=== PATIENT | female | born 1980 | race American Indian/Alaskan Native ===

== ENCOUNTER 2017-02-24 00:37 | Emergency (ER) | payer MEDICAID ==
--- NOTE | 2017-02-24 01:26 | C.PDOC ---
History Of Present Illness 37 year old female presents to the ED for evaluation of left ankle pain. Patient reports that she was at [facility] when she was hit by a cart on the back of her left ankle which caused to fall down on her knees. Notes pain starts at her ankle and radiates up the leg. Patient reports that she has pain ambulating. Patient denies head injury, LOC, weakness, numbness, other injury. Time Seen by Provider: 02/24/17 00:53 Chief Complaint (Nursing): Lower Extremity Problem/Injury History Per: Patient - Knee Description Of Injury: Fell - Ankle/Foot Description Of Injury: Struck With Object Currently Unable To: Bear Weight, Bend Or Move Past Medical History Reviewed: Historical Data, Nursing Documentation, Vital Signs Vital Signs: Last Vital Signs Temp 98.1 F 02/24/17 03:55 Pulse 72 02/24/17 03:55 Resp 16 02/24/17 03:55 BP 126/81 02/24/17 03:55 Pulse Ox 98 02/24/17 03:55 - Medical History PMH: No Chronic Diseases Surgical History: No Surg Hx Family History: States: Unknown Family Hx - Social History Hx Alcohol Use: No Hx Substance Use: No - Immunization History Hx Tetanus Toxoid Vaccination: No Hx Influenza Vaccination: No Hx Pneumococcal Vaccination: No Review Of Systems Constitutional: Negative for: Fever, Chills Cardiovascular: Negative for: Chest Pain Respiratory: Negative for: Cough, Shortness of Breath Gastrointestinal: Negative for: Nausea, Vomiting, Abdominal Pain Musculoskeletal: Positive for: Leg Pain (B/L knee), Foot Pain (left ankle) Skin: Negative for: Rash Neurological: Negative for: Weakness, Numbness Physical Exam - Physical Exam Appears: Non-toxic, No Acute Distress Skin: Normal Color, Warm, Dry Head: Atraumatic, Normacephalic Eye(s): bilateral: Normal Inspection, EOMI Nose: No Discharge Oral Mucosa: Moist Neck: Normal ROM, Supple Chest: Symmetrical Cardiovascular: Rhythm Regular Respiratory: Normal Breath Sounds, No Rales, No Rhonchi, No Wheezing Gastrointestinal/Abdominal: Soft, No Tenderness Extremity: Normal ROM, Tenderness (Dorsal aspect of left ankle), No Deformity, No Other (negative Bowen, no indentations) Pulses: Left Dorsalis Pedis: Normal, Right Dorsalis Pedis: Normal Neurological/Psych: Oriented x3, Normal Speech, Normal Cognition, Normal Sensation ED Course And Treatment O2 Sat by Pulse Oximetry: 100 (On RA) Pulse Ox Interpretation: Normal - Other Rad Tib Fib XR X-Ray: Interpreted by Me, Viewed By Me Interpretation: no fx or dislocation Progress Note: Plan: -Ultram 50 mg PO. -Left Tibian X-Ray. -Left ankle X- Ray. Posterior splint apllied and crutches given by tap and die maker technician. Discussed with pt no acute fx evident. XR can not evaluate ligaments and tendons therefore area will be splinted for sure evaluation by orthopedics in 1-2 days. Instructed RICE and return to ER if symptoms persist or worsen. Disposition - Disposition Referrals: Manuel Martin III, MD [Staff Provider] - Disposition: HOME/ ROUTINE Disposition Time: 02:28 Condition: STABLE Additional Instructions: The Xray of your left lower leg did not show any fracture. This can not rule out any ligament or tendon injury. Rest, ice and elevate the area. Follow up with the bone doctor in 1-2 days for re-evaluation. Prescriptions: Acetaminophen [Tylenol 325mg tab] 650 mg PO Q4 PRN #20 tab PRN Reason: Pain, Mild (1-3) Instructions: Ankle Sprain (ED) Forms: [facility] (German), Work Excuse - Clinical Impression Clinical Impression: Ankle contusion - PA / COMMUNICATION ANALYST / Resident Statement MD/DO has reviewed & agrees with the documentation as recorded. - Scribe Statement The provider has reviewed the documentation as recorded by the Scribe Deejay Howard All medical record entries made by the Scribe were at my direction and personally dictated by me. I have reviewed the chart and agree that the record accurately reflects my personal performance of the history, physical exam, medical decision making, and the department course for this patient. I have also personally directed, reviewed, and agree with the discharge instructions and disposition.
[2017-02-24 03:56] VITALS: BP 126/81; PULSE 72; RESP 16; TEMP 98.1
--- NOTE | 2017-02-24 09:52 | RAD ---
PROCEDURE: Radiographs of the left tibia and fibula. HISTORY: Trauma COMPARISON: None available. TECHNIQUE: Frontal and lateral views obtained. FINDINGS: BONES: No fracture or destructive lesion. Bone alignment and mineralization are normal. JOINT SPACES: Unremarkable. OTHER FINDINGS: None. IMPRESSION: No acute fracture or dislocation.
[2017-02-28 08:39] VITALS: O2SAT 100
== END 2017-02-24 03:55 | disposition home or self-care (01) ==
LOC: C.ER 00:37
DX: S90.02XA Contusion of left ankle, initial encounter (principal); W18.30XA Fall on same level, unspecified, initial encounter; Y92.512 Supermarket, store or market as the place of occurrence of the external cause